=== PATIENT | female | born 1950 | race Caucasian/White ===

== ENCOUNTER 2018-09-09 17:31 | Emergency (ER) | payer OTHER, MEDICARE ==
[2018-09-09 20:40] LABS: URINE BLOOD (Dip) POC Trace-intact (NEGATIVE); URINE GLUCOSE (Dip) POC Negative (NEGATIVE); URINE KETONES (Dip) POC Negative (NEGATIVE); URINE LEUKOCYTE EST (Dip) POC 1+ (NEGATIVE); URINE NITRITE (Dip) POC Positive (NEGATIVE); URINE TOTAL PROTEIN POC Trace (NEGATIVE)
[2018-09-09] MEDS: KETOROLAC 15 MG INJ IM (20:42)
== END 2018-09-09 21:54 | disposition home or self-care (01) ==
LOC: FTE 21:54
DX: N30.00 Acute cystitis without hematuria (principal); I10 Essential (primary) hypertension
CPT/HCPCS: 81003; 87880; 96372; 99284-25